=== PATIENT | male | born 2000 | race Caucasian/White ===

== ENCOUNTER 2020-02-20 16:29 | Emergency (ER) | payer OTHER ==
[2020-02-20 16:36] VITALS: BP 143/93; PULSE 93; RESP 20; TEMP 98.3
[2020-02-20] MEDS ORDERED: HYDROcodone/APAP 5-325MG 1 EACH TAB PO STA (17:18)
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
--- NOTE | 2020-02-20 17:33 | XR ---
EXAMINATION TYPE: XR shoulder complete LT DATE OF EXAM: 02/20/2020 CLINICAL HISTORY: Pain after trauma injury. TECHNIQUE: Three views of the left shoulder are obtained. COMPARISON: None. FINDINGS: There is an acute comminuted slightly displaced oblique fracture through the mid to distal aspect of left clavicle. The acromioclavicular and glenohumeral joint spaces appear within normal l imits. The visualized ribs are intact and unremarkable. IMPRESSION: There is acute slightly displaced oblique fracture through the middle to distal aspect o f left clavicle. (Initial encounter closed type posttraumatic fracture)
--- NOTE | 2020-02-20 17:49 | CT ---
EXAMINATION TYPE: CT brain urbanoine wo con DATE OF EXAM: 02/20/2020 COMPARISON: NONE HISTORY: Fall injury, headache and left sided neck and shoulder pain. CT DLP: 1346 mGycm. Automated Exposure Control for Dose Reduction was Utilized. TECHNIQUE: CT scan of the head and cervical spine are performed without contrast. FINDINGS: There is no acute intracranial hemorrhage, mass effect, or midline shift identified. The ventricles and sulci are within normal limits in size. Forte-white matter differentiation is maintai luis. The globes are intact and the visualized sinuses are clear. The calvarium is intact. Cervical spine is visualized in its entirety from C1 through upper thoracic levels and demonstrates l evoconvex scoliotic curvature or positioning without evidence of acute fracture or dislocation. Prev ertebral soft tissue appears within normal limits. The C1-C2 articulation is within normal limits on the coronal images. Vertebral body heights and disc space heights are maintained. Spinal canal is p reserved. Axial images are grossly unremarkable. Lung apices show no pneumothorax. IMPRESSION: 1. There is no acute fracture or dislocation evident in the cervical spine. 2. No acute intracranial hemorrhage, mass effect, or midline shift is seen.
[2020-02-20] MEDS ORDERED: DIPH,PERTUS(ACELL)TETVAC-LF 0.5 ML VIAL IM ONE (18:00)
[2020-02-20] MEDS ORDERED: HYDROmorphone 0.5 MG/0.5 ML SYRINGE IM STA (18:20)
== END 2020-02-20 19:06 | disposition home or self-care (01) ==
LOC: EC 16:29
DX: S42.002A Fracture of unspecified part of left clavicle, initial encounter for closed fracture (principal); S40.212A Abrasion of left shoulder, initial encounter; Z98.890 Other specified postprocedural states; Z23 Encounter for immunization; V19.9XXA Pedal cyclist (driver) (passenger) injured in unspecified traffic accident, initial encounter; Y92.488 Other paved roadways as the place of occurrence of the external cause; Y93.55 Activity, bike riding
CPT/HCPCS: 99284; 96372; 90471; 73030; 72125; 70450; 90715; J1170; 96374